=== PATIENT | male | born 1975 | race Asian ===

== ENCOUNTER 2019-05-05 20:50 | Emergency (ER) | payer OTHER ==
[~2019-05-05] VITALS: Ht 157.5 cm; Wt 113.6 kg
[2019-05-05 21:06] LABS: GLUCOSE,POINT OF CARE 370 MG/DL (70-110)
[2019-05-05] MEDS ORDERED: LISI5TAB PO (21:07)
[2019-05-05] MEDS ORDERED: GABA-531 PO (21:07)
[2019-05-05] MEDS ORDERED: METF1000 PO (21:07)
[2019-05-05] MEDS ORDERED: ASPI81TA39 PO (21:07)
[2019-05-05] MEDS ORDERED: KETOROLAC TROMETHAMINE 30 MG/ML VIAL IVP ONE (21:45)
[2019-05-05] MEDS ORDERED: SODIUM CHLORIDE 0.9% 250 ML IV ONE (21:45)
[2019-05-05] MEDS ORDERED: INSULIN REGULAR, HUMAN 100 UNITS/ML IVP ONE (21:45)
[2019-05-05 22:51] LABS: GLUCOSE,POINT OF CARE 173 MG/DL (70-110)
[2019-05-06 00:20] VITALS: BP 115/81
== END 2019-05-06 00:35 | disposition home or self-care (01) ==
LOC: EMS 20:51
DX: S13.4XXA Sprain of ligaments of cervical spine, initial encounter (principal); S00.03XA Contusion of scalp, initial encounter; E11.65 Type 2 diabetes mellitus with hyperglycemia; I10 Essential (primary) hypertension; Z79.84 Long term (current) use of oral hypoglycemic drugs; Z79.82 Long term (current) use of aspirin; Z79.899 Other long term (current) drug therapy; Y04.2XXA Assault by strike against or bumped into by another person, initial encounter; Y93.89 Activity, other specified; Y92.89 Other specified places as the place of occurrence of the external cause; Y99.8 Other external cause status
CPT/HCPCS: 70450; 72125; 82962; 96374; 96375; 99285; J1815; J1885; J7040

== ENCOUNTER 2023-12-20 19:57 | Emergency (ER) | payer OTHER ==
[~2023-12-20] VITALS: Ht 157.5 cm; Wt 102.3 kg
[~2023-12-20 19:57] MED LIST: ASPI81TA39 PO; GABA-531 PO; LISI5TAB PO; METF1000 PO
[2023-12-20 19:58] VITALS: BP 135/98; PULSE 114; RESP 16; TEMP 98.2
[2023-12-20] MEDS ORDERED: HYDR-4061 PO (20:13)
[2023-12-20] MEDS ORDERED: PREG100C56 PO (20:13)
[2023-12-20] MEDS ORDERED: DULO20CA71 PO (20:13)
[2023-12-20] MEDS ORDERED: PRAV40TA3 PO (20:13)
[2023-12-20] MEDS ORDERED: BACL10TA PO (20:13)
[2023-12-20] MEDS ORDERED: ASPI-1444 PO (20:22)
[2023-12-20] MEDS ORDERED: FLUT12AE20 IH (20:22)
[2023-12-20] MEDS ORDERED: TOBR5DRO43 OU (20:22)
[2023-12-20] MEDS ORDERED: OMEG-189 PO (20:22)
[2023-12-20] MEDS ORDERED: METF-446 PO (20:22)
[2023-12-20] MEDS ORDERED: EMPA25TA3 PO (20:22)
[2023-12-20] MEDS ORDERED: ZOLP-162 PO (20:22)
[2023-12-20] MEDS ORDERED: LISI10TA24 PO (20:22)
[2023-12-20] MEDS ORDERED: OMEP20CA12 PO (20:22)
[2023-12-20] MEDS ORDERED: GABA-1181 PO (20:39)
== END 2023-12-20 21:05 | disposition home or self-care (01) ==
LOC: EMS 20:17
DX: G89.29 Other chronic pain (principal); M54.50 Low back pain, unspecified; E11.9 Type 2 diabetes mellitus without complications; I10 Essential (primary) hypertension; J45.909 Unspecified asthma, uncomplicated
CPT/HCPCS: 99283